=== PATIENT | female | born 1935 | race Asian ===

== ENCOUNTER 2017-11-27 13:34 | Emergency (ER) | payer MEDICARE, OTHER ==
[2017-11-27 14:10] VITALS: BP 156/72
[2017-11-27 15:40] LABS: ABSOLUTE BASOPHILS # (AUTO) 0.1 10^3/uL (0.0-0.2); ABSOLUTE EOSINOPHILS # (AUTO) 0.2 10^3/uL (0.0-0.6); ABSOLUTE LYMPHOCYTES (AUTO) 1.8 10^3/uL (0.5-4.7); ABSOLUTE MONOCYTES (AUTO) 0.5 10^3/uL (0.1-1.4); ABSOLUTE NEUT (AUTO) 2.7 10^3/uL (1.7-8.2); BASOPHILS % (AUTO) 1.1 % (0-2); HEMATOCRIT 40.4 % (36.0-47.0); HEMOGLOBIN 13.8 g/dL (12.0-15.5); LYMPHOCYTES % (AUTO) 34.9 % (13-45); MEAN CORPUSCULAR HEMOGLOBIN 36.6 pg (27.0-33.4); MEAN CORPUSCULAR VOLUME 108 fl (80-97); MONOCYTES % (AUTO) 9.8 % (3-13); PLATELET COUNT 182 10^3/uL (150-450); RED BLOOD COUNT 3.76 10^6/uL (3.72-5.28); SEGMENTED NEUTROPHILS % (AUTO) 51.2 % (42-78); TOTAL CELLS COUNTED % (AUTO) 100 %; WHITE BLOOD COUNT 5.2 10^3/uL (4.0-10.5)
[2017-11-27 16:03] LABS: ALANINE AMINOTRANSFERASE 40 U/L (9-52); ALBUMIN 3.7 g/dL (3.5-5.0); ALKALINE PHOSPHATASE 110 U/L (38-126); ANION GAP 12 (5-19); ASPARTATE AMINO TRANSFERASE 70 U/L (14-36); BILIRUBIN,DIRECT 0.6 mg/dL (0.0-0.4); BILIRUBIN,TOTAL 0.9 mg/dL (0.2-1.3); BLOOD UREA NITROGEN 22 mg/dL (7-20); CALCIUM 9.3 mg/dL (8.4-10.2); CARBON DIOXIDE 25 mmol/L (22-30); CHLORIDE 106 mmol/L (98-107); CREATINE KINASE 44 U/L (30-135); GLUCOSE 130 mg/dL (75-110); POTASSIUM 4.7 mmol/L (3.6-5.0); SODIUM 142.9 mmol/L (137-145); TOTAL PROTEIN 7.7 g/dL (6.3-8.2)
--- NOTE | 2017-11-27 16:05 | ER Document Report ---
ED Medical Screen (RME) - General Chief Complaint: Arm Pain Stated Complaint: ARM/SHOULDER PAIN Time Seen by Provider: 11/27/17 15:03 Mode of Arrival: Ambulatory Information source: Patient, Relative, [facility] Records - Related Data Allergies/Adverse Reactions: No Known Allergies Allergy (Verified 11/27/17 14:57) Past Medical History - Social History Chew tobacco use (# tins/day): No Frequency of alcohol use: Rare Drug Abuse: None - Past Medical History Cardiac Medical History: Denies: Hx Heart Attack Pulmonary Medical History: Reports: Hx Pneumonia Denies: Hx Asthma, Hx Bronchitis, Hx COPD Neurological Medical History: Denies: Hx Cerebrovascular Accident Renal/ Medical History: Denies: Hx Peritoneal Dialysis Musculoskeltal Medical History: Reports Hx Arthritis Past Surgical History: Reports: Hx Orthopedic Surgery - clavicle - Immunizations Immunizations up to date: No Hx Diphtheria, Pertussis, Tetanus Vaccination: No Physical Exam - Vital signs Vitals: Temp Pulse Resp BP Pulse Ox 98.3 F 71 16 156/72 H 96 11/27/17 14:09 11/27/17 14:09 11/27/17 14:09 11/27/17 14:09 11/27/17 14:09 Course - Vital Signs Vital signs: Temp Pulse Resp BP Pulse Ox 98.3 F 71 16 156/72 H 96 11/27/17 14:09 11/27/17 14:09 11/27/17 14:09 11/27/17 14:09 11/27/17 14:09 - Laboratory Result Diagrams: 11/27/17 15:15 11/27/17 15:15 Laboratory results interpreted by me: 11/27/17 11/27/17 15:15 15:15 MCV 108 H MCH 36.6 H BUN 22 H Glucose 130 H Direct Bilirubin 0.6 H AST 70 H Doctor's Discharge - Discharge Referrals: SHIN LEWIS MD [Primary Care Provider] - Follow up as needed
[2017-11-27 16:09] LABS: C-REACTIVE PROTEIN < 5.0 mg/L (<10.0)
[2017-11-27 16:19] LABS: ERYTHROCYTE SEDIMENTATION RATE 41 mm/hr (0-30)
--- NOTE | 2017-11-27 16:21 | ER Document Report ---
ED General - General Chief Complaint: Arm Pain Stated Complaint: ARM/SHOULDER PAIN Time Seen by Provider: 11/27/17 15:03 Mode of Arrival: Ambulatory Information source: Patient, Relative, [facility] Records Notes: 82-year-old female with rheumatoid arthritis presents with complaint of left elbow and left shoulder pain that started 2 months prior to arrival with worsening pain over the last week. Patient denies any injury, fall. She does take methotrexate weekly for her rheumatoid arthritis. She denies any fever, chills, nausea, vomiting, chest pain, shortness of breath. She does report a frontal headache that she had this morning that was relieved with Aleve. She denies any associated blurred vision, photophobia, nausea, vomiting. She currently denies headache. - HPI Onset: Other Quality of pain: Achy Severity: Mild Associated symptoms: Headache - Resolved. denies: Chest pain, Diarrhea, Fever, Nausea, Vomiting, Shortness of breath Exacerbated by: Denies Relieved by: Denies Similar symptoms previously: Yes Recently seen / treated by doctor: Yes - Related Data Allergies/Adverse Reactions: No Known Allergies Allergy (Verified 11/27/17 14:57) Past Medical History - General Information source: Patient, Relative, [facility] Records - Social History Smoking Status: Current Every Day Smoker Chew tobacco use (# tins/day): No Frequency of alcohol use: Rare Drug Abuse: None Family History: None Patient has suicidal ideation: No Patient has homicidal ideation: No - Past Medical History Cardiac Medical History: Denies: Hx Heart Attack Pulmonary Medical History: Reports: Hx Pneumonia Denies: Hx Asthma, Hx Bronchitis, Hx COPD Neurological Medical History: Denies: Hx Cerebrovascular Accident Renal/ Medical History: Denies: Hx Peritoneal Dialysis Musculoskeletal Medical History: Reports Hx Arthritis Past Surgical History: Reports: Hx Orthopedic Surgery - clavicle - Immunizations Immunizations up to date: No Hx Diphtheria, Pertussis, Tetanus Vaccination: No Review of Systems - Review of Systems Notes: REVIEW OF SYSTEMS: CONSTITUTIONAL : Denies fever, chills, or sweats. Denies recent illness. Denies weight loss, recent hospitalizations. EENT: Denies visual changes, eye pain. Denies nasal or sinus congestion or discharge. Denies sore throat, oral lesions, difficulty swallowing. CARDIOVASCULAR: Denies chest pain. Denies palpitations. Denies lower extremity edema. RESPIRATORY: Denies cough, cold, or chest congestion. Denies shortness of breath, wheezing. GASTROINTESTINAL: Denies abdominal pain or distention. Denies nausea, vomiting , or diarrhea. Denies blood in vomitus, stools, or per rectum. Denies black, tarry stools. Denies constipation. GENITOURINARY: Denies difficulty urinating, painful urination, frequency, blood in urine, or vaginal discharge. MUSCULOSKELETAL: Denies back or neck pain or stiffness. SKIN: Denies rash, lesions or sores. HEMATOLOGIC : Denies easy bruising or bleeding. LYMPHATIC: Denies swollen glands. NEUROLOGICAL: Denies confusion or altered mental status. Denies passing out or loss of consciousness. Denies dizziness or lightheadedness. Denies headache. Denies weakness or paralysis. Denies problems difficulty with ambulation, slurred speech. Denies sensory loss, numbness, or tingling. Denies seizures. PSYCHIATRIC: Denies anxiety or stress. Denies depression, suicidal ideation, or homicidal ideation. Denies visual or auditory hallucinations. Physical Exam - Vital signs Vitals: Temp Pulse Resp BP Pulse Ox 98.3 F 71 16 156/72 H 96 11/27/17 14:09 11/27/17 14:09 11/27/17 14:09 11/27/17 14:09 11/27/17 14:09 Interpretation: Hypertensive. No: Tachycardic, Febrile - Notes Notes: PHYSICAL EXAMINATION: GENERAL: Well-appearing, well-nourished and in no acute distress. HEAD: Atraumatic, normocephalic. EYES: Pupils equal round and reactive to light, extraocular movements intact, conjunctiva are normal. ENT: Nares patent, oropharynx clear without exudates. Moist mucous membranes. NECK: Normal range of motion, supple without lymphadenopathy LUNGS: Breath sounds clear to auscultation bilaterally and equal. No wheezes rales or rhonchi. HEART: Regular rate and rhythm without murmurs. Pulses intact throughout. ABDOMEN: Soft, nontender, nondistended abdomen. No guarding, no rebound. No masses appreciated. Female : deferred Musculoskeletal: Normal range of motion, no pitting or edema. No cyanosis. Left elbow erythematous, warm. Full range of motion without pain. Left shoulder nontender, nonerythematous, no warmth. Full range of motion of elbow without pain. NEUROLOGICAL: Cranial nerves grossly intact. Normal speech, normal gait. Normal sensory, motor exams PSYCH: Normal mood, normal affect. SKIN: Warm, Dry, normal turgor, no rashes or lesions noted. Course - Re-evaluation Re-evalutation: 11/27/17 17:32 Laboratory 11/27/17 11/27/17 15:15 15:15 WBC 5.2 RBC 3.76 Hgb 13.8 Hct 40.4 MCV 108 H MCH 36.6 H MCHC 34.0 RDW 14.0 Plt Count 182 Seg Neutrophils % 51.2 Lymphocytes % 34.9 Monocytes % 9.8 Eosinophils % 3.0 Basophils % 1.1 Absolute Neutrophils 2.7 Absolute Lymphocytes 1.8 Absolute Monocytes 0.5 Absolute Eosinophils 0.2 Absolute Basophils 0.1 ESR 41 H Sodium 142.9 Potassium 4.7 Chloride 106 Carbon Dioxide 25 Anion Gap 12 BUN 22 H Creatinine 0.73 Est GFR ( Amer) > 60 Est GFR (Non-Af Amer) > 60 Glucose 130 H Calcium 9.3 Total Bilirubin 0.9 Direct Bilirubin 0.6 H Neonat Total Bilirubin Not Reportable Neonat Direct Bilirubin Not Reportable Neonat Indirect Bili Not Reportable AST 70 H ALT 40 Alkaline Phosphatase 110 Creatine Kinase 44 C-Reactive Protein < 5.0 Total Protein 7.7 Albumin 3.7 Elbow X-Ray 11/27/17 16:15 IMPRESSION: Small joint effusion. No acute osseous finding.Mild anterior soft tissue swelling. No radiopaque foreign body. Shoulder X-Ray 11/27/17 16:15 IMPRESSION: NO RADIOGRAPHIC EVIDENCE OF ACUTE INJURY. 82-year-old female with rheumatoid arthritis presents with complaint of left shoulder and left elbow pain that have been ongoing for approximately 2-1/2 months. Patient denies injury, fall, abrasion, laceration fever. Patient does receive methotrexate weekly for her rheumatoid arthritis. She does report a frontal headache that occurred this morning but was relieved after taking one Aleve. Upon arrival vitals were reviewed, patient is afebrile, mildly hypertensive and not hypoxic. She does not appear toxic or dehydrated. She is in no acute distress. Exam of the left upper extremities significant for some erythema of the elbow and warmth but patient has full range of motion without any pain. Left shoulder is without erythema. CBC is without leukocytosis or anemia. CMP shows no electrolyte abnormalities. Patient does have a mildly elevated AST. ESR mildly elevated. With the patient's exam of currently being pain-free, full range of motion I do not think this is a septic joint. I think this is likely secondary to her rheumatoid arthritis. I did speak to Dr. Frias orthopedic surgeon director of infection prevention who felt that the mildly elevated ESR could be secondary to her rheumatoid arthritis. Advises follow-up in the office. Patient does have an upcoming appointment with her transitions manager rn on December 10. Patient declining pain medication at this time. Patient provided the opportunity to ask questions, and express concerns. Discharge instructions discussed. Patient is agreeable with discharge home. Return indications explained and discussed with the patient who displays understanding. Patient encouraged to return to the emergency department immediately with any concerns. 11/27/17 17:33 11/27/17 17:37 - Vital Signs Vital signs: Temp Pulse Resp BP Pulse Ox 98.3 F 71 16 156/72 H 96 11/27/17 14:09 11/27/17 14:09 11/27/17 14:09 11/27/17 14:09 11/27/17 14:09 - Laboratory Result Diagrams: 11/27/17 15:15 11/27/17 15:15 Laboratory results interpreted by me: 11/27/17 11/27/17 15:15 15:15 MCV 108 H MCH 36.6 H ESR 41 H BUN 22 H Glucose 130 H Direct Bilirubin 0.6 H AST 70 H - Diagnostic Test Radiology reviewed: Image reviewed, Reports reviewed Discharge - Discharge Clinical Impression: Left elbow pain, Effusion, left elbow, History of rheumatoid arthritis Shoulder pain, left Qualifiers: Chronicity: chronic Qualified Code(s): M25.512 - Pain in left shoulder Condition: Good Disposition: HOME, SELF-CARE Instructions: Elbow Effusion ([facility]), Rheumatoid Arthritis ([facility]) Additional Instructions: As we get older taking anti-inflammatory medications such as Aleve every day could cause your stomach to bleed, and inflammation of your stomach. At this time I advised stopping Aleve and starting Tylenol arthritis. Prescriptions: Acetaminophen [Tylenol Arthritis] 650 mg PO BID #20 tablet.er Forms: Elevated Blood Pressure Referrals: SHIN LEWIS MD [COMMUNITY BASED STAFF] - Follow up as needed VIANNEY FRIAS MD [ACTIVE STAFF] - Follow up in 3-5 days
--- NOTE | 2017-11-27 17:20 | RADIOLOGY REPORT (SQ) ---
EXAM DESCRIPTION: ELBOW LEFT AP/LATERAL COMPLETED DATE/TIME: 11/27/2017 5:07 pm REASON FOR STUDY: pain redness COMPARISON: None. EXAM PARAMETERS: NUMBER OF VIEWS: Three views. TECHNIQUE: AP, lateral and oblique radiographic images acquired of the left elbow LIMITATIONS: None. FINDINGS: MINERALIZATION: Normal. BONES: No acute fracture or dislocation. No worrisome bone lesions. JOINTS: Small effusion. SOFT TISSUES: Mild anterior soft tissue swelling. No radiopaque foreign body. OTHER: No other significant finding. IMPRESSION: Small joint effusion. No acute osseous finding.Mild anterior soft tissue swelling. No radiopaque foreign body. TECHNICAL DOCUMENTATION: JOB ID: [id number] [place]-72 2010 [employer]- All Rights Reserved Reading location - IP/workstation name: [email or web address]
--- NOTE | 2017-11-27 17:21 | RADIOLOGY REPORT (SQ) ---
EXAM DESCRIPTION: SHOULDER LEFT 2 OR MORE VIEWS COMPLETED DATE/TIME: 11/27/2017 5:07 pm REASON FOR STUDY: pain redness COMPARISON: None. NUMBER OF VIEWS: Three views. TECHNIQUE: Internal rotation, external rotation, and Y view images acquired of the left shoulder. LIMITATIONS: None. FINDINGS: MINERALIZATION: Normal. BONES: No acute fracture or dislocation. No worrisome bone lesions. JOINTS: No dislocation. VISUALIZED LUNGS AND RIBS: No pneumothorax. No rib fracture. SOFT TISSUES: No radiopaque foreign body. OTHER: No other significant finding. IMPRESSION: NO RADIOGRAPHIC EVIDENCE OF ACUTE INJURY. TECHNICAL DOCUMENTATION: JOB ID: [id number] [place]-72 2010 [employer]- All Rights Reserved Reading location - IP/workstation name: [email or web address]
== END 2017-11-27 17:59 | disposition home or self-care (01) ==
LOC: ER 13:34
DX: M06.9 Rheumatoid arthritis, unspecified (principal); Z79.899 Other long term (current) drug therapy; M25.522 Pain in left elbow; M25.422 Effusion, left elbow; M25.512 Pain in left shoulder; G89.29 Other chronic pain; R51 Headache; F17.200 Nicotine dependence, unspecified, uncomplicated; L53.9 Erythematous condition, unspecified; R74.0 Nonspecific elevation of levels of transaminase and lactic acid dehydrogenase [LDH]; R70.0 Elevated erythrocyte sedimentation rate
CPT/HCPCS: 36415; 80053; 82550; 85025; 85652; 86140; 99283